=== PATIENT | female | born 1945 | race African-American/Black ===

== ENCOUNTER → 2023-05-26 | Outpatient (CLI) | payer OTHER ==
[~2023-05-26] VITALS: Ht 154.9 cm; Wt 78.5 kg
[2023-05-26] MEDS: ADENOSINE 66 MG in GIVE UN-DILUTED 0 ML IV STA (08:53)
== END | disposition home or self-care (01) ==
LOC: XYW 07:16
PROVIDERS: ATTEND Internal Medicine
DX: Z01.810 Encounter for preprocedural cardiovascular examination (principal); I10 Essential (primary) hypertension; M10.9 Gout, unspecified; E03.9 Hypothyroidism, unspecified; M16.11 Unilateral primary osteoarthritis, right hip
CPT/HCPCS: 78452; 93017; A9500; J0153

== ENCOUNTER → 2023-05-29 | Outpatient (CLI) | payer MEDICARE, OTHER | END | disposition home or self-care (01) | LOC: XYW 12:14 | PROVIDERS: ATTEND Student in an Organized Health Care Education/Training Program | DX: Z01.810 Encounter for preprocedural cardiovascular examination (principal); I10 Essential (primary) hypertension | CPT/HCPCS: 93306 ==

== ENCOUNTER → 2023-06-19 | Outpatient (CLI) | payer OTHER ==
[2023-06-19 11:41] LABS: Chloride 107 mmol/L (98-107); Potassium 4.1 mmol/L (3.5-5.1); Sodium 140 mmol/L (136-145)
[2023-06-19 11:42] LABS: Anion Gap 5 (5-15); Calcium 10.2 mg/dL (8.7-10.4); Carbon Dioxide 28 mmol/L (20-30)
[2023-06-19 11:46] LABS: Uric Acid 4.1 mg/dL (3.1-7.8)
[2023-06-19 11:47] LABS: BUN/Creatinine Ratio 9.8 (10.0-20.0); Blood Urea Nitrogen 9 mg/dL (9-23); Glucose 95 mg/dL (74-106)
== END | disposition home or self-care (01) ==
LOC: LAB 10:45
PROVIDERS: ATTEND Family Medicine
DX: I10 Essential (primary) hypertension (principal); E03.9 Hypothyroidism, unspecified; R73.03 Prediabetes; M1A.9XX0 Chronic gout, unspecified, without tophus (tophi)
CPT/HCPCS: 36415; 80048; 83036; 84439; 84443; 84550

== ENCOUNTER 2023-08-19 05:58 | Inpatient (IN) | payer OTHER ==
[2023-08-17 13:03] LABS: Urine Bacteria None Seen /hpf (None Seen)
[2023-08-17 13:10] LABS: Basophils # (auto) 0.1 10 ^3/uL (0-0.2); Basophils % (auto) 0.8 % (0.0-2.0); Eosinophils # (auto) 0.4 10 ^3/uL (0-0.8); Hematocrit 32.6 % (36.0-46.0); Hemoglobin 10.8 g/dL (12.2-16.2); Lymphocytes % (auto) 41.5 % (10.0-50.0); Mean Corpuscular Hemoglobin 29.6 pg (28.0-32.0); Mean Corpuscular Volume 89.7 fL (80.0-100.0); Monocytes # (auto) 0.6 10 ^3/uL (0-1.3); Monocytes % (auto) 8.6 % (0.0-12.0); Neutrophils # (auto) 3.2 10 ^3/uL (1.6-8.6); Neutrophils % (auto) 44.1 % (37.0-80.0); Nucleated Red Blood Cells % 0.1 %; Red Blood Cells 3.64 10^6/uL (4.0-5.20); Red Cell Distribution Width 14.1 % (11.8-14.3); White Blood Cell 7.3 10^3/uL (4.4-10.8)
[2023-08-17 13:25] LABS: INR 1.03 (0.9-1.15); Partial Thromboplastin Time 29.8 SEC (24.5-34.5); Prothrombin Time 10.9 sec (9.3-11.8)
[2023-08-17 13:36] LABS: Urine Blood Negative /uL (Negative); Urine Clarity Clear (Clear); Urine Color Light-Yellow (Yellow); Urine Protein, UAD Negative (Negative); Urine Specific Gravity 1.016 (1.001-1.035); Urine Urobilinogen Normal (Negative); Urine WBC 1 /hpf (0 - 5)
[2023-08-17 13:58] LABS: Albumin 4.4 g/dL (3.2-4.8); Alkaline Phosphatase 67 U/L (46-116); Anion Gap 4 (5-15); Aspartate Aminotransferase 19 U/L (13-40); BUN/Creatinine Ratio 14.4 (10.0-20.0); Blood Urea Nitrogen 13 mg/dL (9-23); Calcium 10.3 mg/dL (8.5-10.1); Carbon Dioxide 29 mmol/L (20-30); Chloride 108 mmol/L (98-107); Glucose 86 mg/dL (74-106); Potassium 4.6 mmol/L (3.5-5.1); Sodium 141 mmol/L (136-145)
[2023-08-17 13:59] LABS: Bilirubin, Total 0.5 mg/dL (0.2-1.0); Total Protein 7.3 g/dL (5.7-8.2)
[2023-08-17 14:06] LABS: Alanine Aminotransferase < 9 U/L (7-40)
[~2023-08-19] VITALS: Ht 157.5 cm; Wt 85.9 kg
[~2023-08-19 05:58] MED LIST: ACE3T PO; ALL100T PO; LEVO88TA4 PO; LISI2.5T47 PO; METO-289 PO; MIRA25TA OR
[2023-08-19] MEDS: TRANEXAMIC ACID 20 ML ONE (06:40)
[2023-08-19] MEDS: BUPIVACAINE 0.25% INJ 50ML VIAL ONE (06:40)
[2023-08-19] MEDS ORDERED: KETOROLAC TROMETH 30 MG/ML 1ML VIAL ONE (06:52)
[2023-08-19] MEDS ORDERED: MORPHINE SULF PF 5 MG/10 ML VIAL ONE (06:52)
[2023-08-19] MEDS: ROPIVACAINE 0.5% (5MG/ML) 20ML AMPULE IJ ONE (06:59)
[2023-08-19] MEDS ORDERED: MIDAZOLAM HCL 2MG/2ML 2ml VIAL (1mg/ml) ONE (07:03)
[2023-08-19] MEDS ORDERED: fentaNYL CITRATE 100 MCG/2 ML VL ONE (07:03)
[2023-08-19] MEDS ORDERED: PROPOFOL 10 MG/ML 20 ML IV ONE (07:05)
[2023-08-19] MEDS ORDERED: PHENYLEPHRINE HCL 10 MG/ML VL ONE (07:09)
[2023-08-19] MEDS: VANCOMYCIN HCL 1000 MG VL ONE (08:15)
[2023-08-19] MEDS ORDERED: LIDOCAINE 1% INJ PF 5ML AMP ONE (08:17)
[2023-08-19] MEDS ORDERED: ePHEDrine SULFATE 50 MG/ML AMP ONE (08:17)
[2023-08-19 09:14] VITALS: O2SAT 100
[2023-08-19] MEDS: LACTATED RINGER'S 1,000 ML IV SCH (09:14)
[2023-08-19] MEDS ORDERED: BISACODYL 5 MG EC TAB PO PRN (09:30)
[2023-08-19] MEDS: ONDANSETRON HCL 4 MG/2 ML VIAL IV ONE (09:30)
[2023-08-19] MEDS ORDERED: HYDROmorphone HCL 2 MG/ML VL/or syr IV PRN (09:30)
[2023-08-19] MEDS ORDERED: ceFAZolin 1GM/50ML 50 ML IV SCH ×2 (09:30→12:30)
[2023-08-19] MEDS ORDERED: MEPERIDINE HCL (25 MG/ML) 1ML VIAL IV PRN (09:30)
[2023-08-19] MEDS ORDERED: NITROGLYCERIN 0.4 MG SL TAB SL PRN (09:30)
[2023-08-19] MEDS: DOCUSATE SOD 100 MG CAP PO SCH (10:00)
[2023-08-19] MEDS: ENOXAPARIN SOD 30 MG/0.3 ML SYRINGE SC SCH (10:00)
[2023-08-19] MEDS: ceFAZolin 1GM/50ML 50 ML IV SCH (14:11)
[2023-08-19 14:17] VITALS: BP 149/62; PULSE 75; RESP 16; TEMP 97.4; O2SAT 99
[2023-08-19] MEDS: HYDROcodone-ACET 5/325MG TAB PO PRN (14:44)
[2023-08-19] MEDS: LISINOPRIL 5 MG TAB PO ONE (14:44)
[2023-08-19 17:35] VITALS: BP 113/49; PULSE 75; RESP 16; TEMP 98.8; O2SAT 100
[2023-08-19] MEDS: MORPHINE SULFATE INJ 2 MG/ml SYRG IV PRN (18:46)
[2023-08-19 19:36] VITALS: PULSE 82
[2023-08-19 21:00] VITALS: BP 139/60; PULSE 79; RESP 17; TEMP 98.9; O2SAT 97
[2023-08-20] VITALS (8 sets, daily range): BP systolic 125–150; BP diastolic 54–65; PULSE 76–84; RESP 14–20; TEMP 97.2–99.5; O2SAT 96–98
[2023-08-20] MEDS: LEVOTHYROXINE SODIUM 88 MCG TAB PO SCH (05:11)
[2023-08-20 07:00] LABS: Basophils # (auto) 0 10 ^3/uL (0-0.2); Basophils % (auto) 0.1 % (0.0-2.0); Eosinophils # (auto) 0 10 ^3/uL (0-0.8); Hematocrit 25.5 % (36.0-46.0); Hemoglobin 8.5 g/dL (12.2-16.2); Lymphocytes # (auto) 1.6 10 ^3/uL (0.4-5.4); Mean Corpuscular Hemoglobin 29.7 pg (28.0-32.0); Mean Corpuscular Hgb Conc. 33.2 g/dL (32.0-36.0); Mean Corpuscular Volume 89.4 fL (80.0-100.0); Monocytes # (auto) 1.1 10 ^3/uL (0-1.3); Monocytes % (auto) 11.6 % (0.0-12.0); Neutrophils # (auto) 6.6 10 ^3/uL (1.6-8.6); Neutrophils % (auto) 71.3 % (37.0-80.0); Nucleated Red Blood Cells % 0.2 %; Red Blood Cells 2.85 10^6/uL (4.0-5.20); Red Cell Distribution Width 14.1 % (11.8-14.3); White Blood Cell 9.2 10^3/uL (4.4-10.8)
[2023-08-20 07:09] LABS: Alanine Aminotransferase 116 U/L (7-40); Albumin 3.4 g/dL (3.2-4.8); Alkaline Phosphatase 69 U/L (46-116); Anion Gap 6 (5-15); Aspartate Aminotransferase 420 U/L (13-40); BUN/Creatinine Ratio 16.3 (10.0-20.0); Bilirubin, Total 1.6 mg/dL (0.2-1.0); Blood Urea Nitrogen 14 mg/dL (9-23); Calcium 9.1 mg/dL (8.5-10.1); Carbon Dioxide 26 mmol/L (20-30); Chloride 107 mmol/L (98-107); Glucose 137 mg/dL (74-106); Potassium 4.2 mmol/L (3.5-5.1); Sodium 139 mmol/L (136-145); Total Protein 5.5 g/dL (5.7-8.2)
[2023-08-20] MEDS: LISINOPRIL 5 MG TAB PO SCH (08:28)
[2023-08-20] MEDS: ALLOPURINOL 100 MG TAB PO SCH (08:28)
[2023-08-20] MEDS: ONDANSETRON HCL 4 MG/2 ML VIAL IV PRN (10:27)
[2023-08-20] MEDS: LACTATED RINGER'S 1,000 ML IV SCH (10:27)
[2023-08-21] VITALS (7 sets, daily range): BP systolic 122–142; BP diastolic 50–72; PULSE 79–98; RESP 16–20; TEMP 98.1–99.3; O2SAT 93–97
[2023-08-21] MEDS: LEVOTHYROXINE SODIUM 88 MCG TAB PO SCH (05:36)
[2023-08-21 07:00] LABS: Basophils # (auto) 0 10 ^3/uL (0-0.2); Eosinophils # (auto) 0 10 ^3/uL (0-0.8); Hemoglobin 8.4 g/dL (12.2-16.2); Red Cell Distribution Width 14.2 % (11.8-14.3)
[2023-08-21 07:03] LABS: Basophils % (auto) 0.3 % (0.0-2.0); Eosinophils % (auto) 0.3 % (0.0-7.0); Hematocrit 25.3 % (36.0-46.0); Lymphocytes # (auto) 1.4 10 ^3/uL (0.4-5.4); Lymphocytes % (auto) 13.6 % (10.0-50.0); Mean Corpuscular Hemoglobin 29.5 pg (28.0-32.0); Mean Corpuscular Hgb Conc. 33.1 g/dL (32.0-36.0); Mean Corpuscular Volume 89.2 fL (80.0-100.0); Monocytes # (auto) 1.5 10 ^3/uL (0-1.3); Monocytes % (auto) 14.4 % (0.0-12.0); Neutrophils # (auto) 7.3 10 ^3/uL (1.6-8.6); Neutrophils % (auto) 71.4 % (37.0-80.0); Red Blood Cells 2.84 10^6/uL (4.0-5.20); White Blood Cell 10.2 10^3/uL (4.4-10.8)
[2023-08-21 07:19] LABS: Alanine Aminotransferase 166 U/L (7-40); Albumin 3.2 g/dL (3.2-4.8); Alkaline Phosphatase 124 U/L (46-116); Anion Gap 4 (5-15); Aspartate Aminotransferase 352 U/L (13-40); BUN/Creatinine Ratio 10.5 (10.0-20.0); Blood Urea Nitrogen 8 mg/dL (9-23); Carbon Dioxide 28 mmol/L (20-30); Chloride 107 mmol/L (98-107); Glucose 105 mg/dL (74-106); Potassium 4.2 mmol/L (3.5-5.1); Sodium 139 mmol/L (136-145)
[2023-08-21 07:20] LABS: Bilirubin, Total 2.5 mg/dL (0.2-1.0); Total Protein 5.4 g/dL (5.7-8.2)
[2023-08-21] MEDS: LISINOPRIL 5 MG TAB PO ONE (10:38)
[2023-08-21] MEDS ORDERED: IRON SUCROSE COMPLEX 100 ML IV SCH (12:00)
[2023-08-21] MEDS: traMADol HCL 50 MG TAB PO PRN (13:04)
[2023-08-21] MEDS: SODIUM FERR GLUC 62.5MG/5ML 125 MG in SODIUM CHL 0.9% 100 ML IV SCH (13:04)
[2023-08-22] VITALS (9 sets, daily range): BP systolic 106–144; BP diastolic 50–70; PULSE 81–108; RESP 18–20; TEMP 97.4–99.3; O2SAT 95–97
[2023-08-22 07:25] LABS: Basophils # (auto) 0 10 ^3/uL (0-0.2); Eosinophils # (auto) 0.1 10 ^3/uL (0-0.8); Hemoglobin 7.1 g/dL (12.2-16.2); Monocytes # (auto) 1.3 10 ^3/uL (0-1.3); Neutrophils # (auto) 5.4 10 ^3/uL (1.6-8.6)
[2023-08-22 07:28] LABS: Basophils % (auto) 0.4 % (0.0-2.0); Eosinophils % (auto) 1.2 % (0.0-7.0); Hematocrit 21.3 % (36.0-46.0); Lymphocytes # (auto) 2.1 10 ^3/uL (0.4-5.4); Lymphocytes % (auto) 23.1 % (10.0-50.0); Mean Corpuscular Hemoglobin 29.8 pg (28.0-32.0); Mean Corpuscular Hgb Conc. 33.5 g/dL (32.0-36.0); Mean Corpuscular Volume 88.8 fL (80.0-100.0); Neutrophils % (auto) 60.3 % (37.0-80.0); Nucleated Red Blood Cells % 0.1 %; Red Cell Distribution Width 13.8 % (11.8-14.3)
[2023-08-22 07:29] LABS: Alanine Aminotransferase 82 U/L (7-40); Albumin 2.8 g/dL (3.2-4.8); Alkaline Phosphatase 104 U/L (46-116); Anion Gap 2 (5-15); Aspartate Aminotransferase 113 U/L (13-40); BUN/Creatinine Ratio 8.6 (10.0-20.0); Bilirubin, Total 1.1 mg/dL (0.2-1.0); Blood Urea Nitrogen 5 mg/dL (9-23); Calcium 8.5 mg/dL (8.5-10.1); Carbon Dioxide 29 mmol/L (20-30); Chloride 107 mmol/L (98-107); Glucose 90 mg/dL (74-106); Potassium 3.6 mmol/L (3.5-5.1); Sodium 138 mmol/L (136-145); Total Protein 4.8 g/dL (5.7-8.2)
[2023-08-22] MEDS: LISINOPRIL 5 MG TAB PO SCH (09:51)
[2023-08-22] MEDS: ACETAMINOPHEN 500 MG TAB PO PRN (14:57)
[2023-08-23] VITALS (8 sets, daily range): BP systolic 130–146; BP diastolic 61–68; PULSE 86–106; RESP 17–20; TEMP 98–98.8; O2SAT 95–98
[2023-08-23 06:21] LABS: Basophils # (auto) 0 10 ^3/uL (0-0.2); Eosinophils # (auto) 0.4 10 ^3/uL (0-0.8); Eosinophils % (auto) 3.6 % (0.0-7.0); Hemoglobin 8.3 g/dL (12.2-16.2); Monocytes # (auto) 1.3 10 ^3/uL (0-1.3); Neutrophils # (auto) 6.1 10 ^3/uL (1.6-8.6)
[2023-08-23 06:24] LABS: Basophils % (auto) 0.2 % (0.0-2.0); Hematocrit 25.1 % (36.0-46.0); Lymphocytes % (auto) 20.9 % (10.0-50.0); Mean Corpuscular Hemoglobin 29.4 pg (28.0-32.0); Mean Corpuscular Volume 89.1 fL (80.0-100.0); Monocytes % (auto) 13.3 % (0.0-12.0); Nucleated Red Blood Cells % 0.2 %; Red Blood Cells 2.81 10^6/uL (4.0-5.20); Red Cell Distribution Width 15.6 % (11.8-14.3); White Blood Cell 9.8 10^3/uL (4.4-10.8)
[2023-08-23 06:36] LABS: Anion Gap 2 (5-15); Carbon Dioxide 28 mmol/L (20-30); Chloride 107 mmol/L (98-107); Potassium 3.5 mmol/L (3.5-5.1); Sodium 137 mmol/L (136-145)
[2023-08-23 06:37] LABS: Calcium 8.6 mg/dL (8.7-10.4)
[2023-08-23 06:42] LABS: BUN/Creatinine Ratio 8.5 (10.0-20.0); Blood Urea Nitrogen 5 mg/dL (9-23); Glucose 94 mg/dL (74-106)
[2023-08-23] MEDS ORDERED: APIX5TAB PO (09:18)
[2023-08-23] MEDS ORDERED: OXYC-962 PO (09:18)
[2023-08-23] MEDS: diphenhdrAMINE HCL 25 MG CAP PO ONE (13:00)
[2023-08-24] VITALS (8 sets, daily range): BP systolic 129–151; BP diastolic 56–68; PULSE 51–94; RESP 16–18; TEMP 98–98.9; O2SAT 94–98
[2023-08-25] VITALS (8 sets, daily range): BP systolic 130–168; BP diastolic 36–77; PULSE 87–99; RESP 17–18; TEMP 97.4–98.9; O2SAT 96–100
[2023-08-25 06:42] LABS: Basophils # (auto) 0 10 ^3/uL (0-0.2); Basophils % (auto) 0.4 % (0.0-2.0); Eosinophils # (auto) 0.5 10 ^3/uL (0-0.8); Eosinophils % (auto) 4.7 % (0.0-7.0); Hemoglobin 7.8 g/dL (12.2-16.2); Monocytes # (auto) 1.4 10 ^3/uL (0-1.3); Nucleated Red Blood Cells % 0.1 %
[2023-08-25 06:45] LABS: Lymphocytes # (auto) 2.4 10 ^3/uL (0.4-5.4); Lymphocytes % (auto) 22.8 % (10.0-50.0); Mean Corpuscular Hemoglobin 28.9 pg (28.0-32.0); Mean Corpuscular Hgb Conc. 32.5 g/dL (32.0-36.0); Mean Corpuscular Volume 88.9 fL (80.0-100.0); Monocytes % (auto) 13.4 % (0.0-12.0); Neutrophils # (auto) 6.2 10 ^3/uL (1.6-8.6); Neutrophils % (auto) 58.7 % (37.0-80.0); Red Cell Distribution Width 15.2 % (11.8-14.3); White Blood Cell 10.5 10^3/uL (4.4-10.8)
[2023-08-25 06:50] LABS: Anion Gap 6 (5-15); Carbon Dioxide 28 mmol/L (20-30); Chloride 106 mmol/L (98-107); Potassium 4.2 mmol/L (3.5-5.1); Sodium 140 mmol/L (136-145)
[2023-08-25 06:51] LABS: Calcium 8.8 mg/dL (8.5-10.1)
[2023-08-25 06:56] LABS: BUN/Creatinine Ratio 14.3 (10.0-20.0); Blood Urea Nitrogen 9 mg/dL (9-23); Glucose 92 mg/dL (74-106)
[2023-08-25] MEDS: hydrALAZINE HCL 20 MG/ML VL IV PRN (13:19)
[2023-08-26] VITALS (7 sets, daily range): BP systolic 123–168; BP diastolic 58–74; PULSE 84–96; RESP 17–20; TEMP 97.8–98.8; O2SAT 95–98
[2023-08-26] MEDS: LACTULOSE 20Gm/30ML SOLN PO ONE (12:45)
[2023-08-26] MEDS: cloNIDine HCL 0.1 MG TAB PO ONE (18:55)
[2023-08-27 01:00] VITALS: BP 134/64; PULSE 87; RESP 20; TEMP 98.5; O2SAT 96
[2023-08-27 05:00] VITALS: BP 156/68; PULSE 82; RESP 20; TEMP 98.6; O2SAT 93
[2023-08-27] MEDS: diphenhdrAMINE HCL 50 MG/1 ML VL IV PRN (06:20)
[2023-08-27 07:20] LABS: Basophils # (auto) 0 10 ^3/uL (0-0.2); Basophils % (auto) 0.4 % (0.0-2.0); Eosinophils # (auto) 0.5 10 ^3/uL (0-0.8); Hematocrit 27.3 % (36.0-46.0); Hemoglobin 8.9 g/dL (12.2-16.2); Lymphocytes # (auto) 2.5 10 ^3/uL (0.4-5.4); Lymphocytes % (auto) 20.7 % (10.0-50.0); Mean Corpuscular Hemoglobin 29.5 pg (28.0-32.0); Mean Corpuscular Hgb Conc. 32.8 g/dL (32.0-36.0); Mean Corpuscular Volume 90.1 fL (80.0-100.0); Monocytes # (auto) 1.5 10 ^3/uL (0-1.3); Monocytes % (auto) 12.8 % (0.0-12.0); Neutrophils # (auto) 7.4 10 ^3/uL (1.6-8.6); Neutrophils % (auto) 62.1 % (37.0-80.0); Nucleated Red Blood Cells % 0.1 %; Red Blood Cells 3.03 10^6/uL (4.0-5.20); Red Cell Distribution Width 15.1 % (11.8-14.3); White Blood Cell 11.9 10^3/uL (4.4-10.8)
[2023-08-27 07:37] LABS: Alanine Aminotransferase 28 U/L (7-40); Albumin 3.4 g/dL (3.2-4.8); Alkaline Phosphatase 91 U/L (46-116); Anion Gap 4 (5-15); Aspartate Aminotransferase 37 U/L (13-40); BUN/Creatinine Ratio 9.2 (10.0-20.0); Blood Urea Nitrogen 6 mg/dL (9-23); Calcium 9.3 mg/dL (8.5-10.1); Carbon Dioxide 29 mmol/L (20-30); Chloride 104 mmol/L (98-107); Glucose 79 mg/dL (74-106); Potassium 3.6 mmol/L (3.5-5.1); Sodium 137 mmol/L (136-145)
[2023-08-27 07:38] LABS: Bilirubin, Total 0.8 mg/dL (0.2-1.0)
[2023-08-27 08:29] VITALS: BP 130/60; PULSE 83; RESP 18; TEMP 98.2; O2SAT 94
[2023-08-27 11:43] VITALS: BP 134/63; PULSE 102; RESP 16; TEMP 98.1; O2SAT 97
[2023-08-27 16:34] VITALS: BP 131/62; PULSE 91; RESP 16; TEMP 98.1; O2SAT 97
== END 2023-08-27 19:51 | DRG 470 ==
LOC: SUR 05:58 → TELE 09:26 → TELE-CENTR 13:56 → CENTRAL 08-25 13:27
PROVIDERS: ADMIT Orthopaedic Surgery; ATTEND Internal Medicine
PROC: 0SR90JZ Replacement of Right Hip Joint with Synthetic Substitute, Open Approach (ICD-10-PCS; principal; 2023-08-19 07:21)
PROC: 30233N1 Transfusion of Nonautologous Red Blood Cells into Peripheral Vein, Percutaneous Approach (ICD-10-PCS; 2023-08-22)
DX: M16.11 Unilateral primary osteoarthritis, right hip (principal); E03.9 Hypothyroidism, unspecified; I10 Essential (primary) hypertension; M10.9 Gout, unspecified; E66.9 Obesity, unspecified; D64.9 Anemia, unspecified; R74.01 Elevation of levels of liver transaminase levels; K80.20 Calculus of gallbladder without cholecystitis without obstruction; Z88.0 Allergy status to penicillin; Z82.49 Family history of ischemic heart disease and other diseases of the circulatory system; Z68.34 Body mass index [BMI] 34.0-34.9, adult; Z79.899 Other long term (current) drug therapy
CPT/HCPCS: 36415; 72170; 76705; 80048; 80053; 81001; 84443; 85025; 85610; 85730; 86850; 86900; 86901; 86920; 93005; 97110; 97116; 97163; 97530; G0378; J1885; J2250; J2405; J2704; J3490

== ENCOUNTER 2023-09-10 11:54 | Inpatient (IN) | payer OTHER ==
[~2023-09-10] VITALS: Ht 154.9 cm; Wt 75.9 kg
[~2023-09-10 11:54] MED LIST changes: +APIX5TAB PO; +OXYC-962 PO
[2023-09-10 12:07] VITALS: BP 143/70; PULSE 73; RESP 18; TEMP 97.7; O2SAT 96
[2023-09-10 12:43] VITALS: BP 143/70; PULSE 73; RESP 18; TEMP 97.7; O2SAT 96
[2023-09-10] MEDS ORDERED: MORPHINE SULFATE INJ 2 MG/ml SYRG IV PRN (14:00)
[2023-09-10] MEDS ORDERED: ACETAMINOPHEN 325 MG TAB PO PRN (14:00)
[2023-09-10] MEDS ORDERED: LISI-275 PO (14:09)
[2023-09-10 15:52] LABS: Hemoglobin 10.8 g/dL (12.2-16.2); Monocytes # (auto) 0.6 10 ^3/uL (0-1.3); Red Cell Distribution Width 15.4 % (11.8-14.3)
[2023-09-10 15:53] LABS: Basophils # (auto) 0 10 ^3/uL (0-0.2); Basophils % (auto) 0.6 % (0.0-2.0); Eosinophils # (auto) 0.2 10 ^3/uL (0-0.8); Eosinophils % (auto) 3.5 % (0.0-7.0); Hematocrit 33.3 % (36.0-46.0); Mean Corpuscular Hgb Conc. 32.3 g/dL (32.0-36.0); Mean Corpuscular Volume 89.8 fL (80.0-100.0); Monocytes % (auto) 8.3 % (0.0-12.0); Neutrophils # (auto) 4.4 10 ^3/uL (1.6-8.6); Neutrophils % (auto) 60.6 % (37.0-80.0); Nucleated Red Blood Cells % 0.1 %; Red Blood Cells 3.71 10^6/uL (4.0-5.20); White Blood Cell 7.2 10^3/uL (4.4-10.8)
[2023-09-10 16:12] LABS: Alanine Aminotransferase < 9 U/L (7-40); Albumin 4.2 g/dL (3.2-4.8); Alkaline Phosphatase 107 U/L (46-116); Anion Gap 7 (5-15); Aspartate Aminotransferase 26 U/L (13-40); BUN/Creatinine Ratio 11.8 (10.0-20.0); Bilirubin, Total 0.5 mg/dL (0.2-1.0); Blood Urea Nitrogen 10 mg/dL (9-23); Carbon Dioxide 24 mmol/L (20-30); Chloride 105 mmol/L (98-107); Glucose 89 mg/dL (74-106); INR 0.99 (0.9-1.15); Partial Thromboplastin Time 31.3 SEC (24.5-34.5); Potassium 4.2 mmol/L (3.5-5.1); Prothrombin Time 10.5 sec (9.3-11.8); Sodium 136 mmol/L (136-145); Total Protein 7.6 g/dL (5.7-8.2)
[2023-09-10 17:17] VITALS: BP 141/72; PULSE 82; RESP 19; TEMP 97.8; O2SAT 95
[2023-09-10] MEDS: HYDROcodone-ACET 5/325MG TAB PO PRN (19:45)
[2023-09-10 20:00] VITALS: PULSE 82; RESP 16
[2023-09-10 21:00] VITALS: BP 118/59; PULSE 77; RESP 16; TEMP 98.5; O2SAT 94
[2023-09-11] VITALS (7 sets, daily range): BP systolic 101–154; BP diastolic 52–84; PULSE 59–78; RESP 14–18; TEMP 97.4–98.1; O2SAT 96–98
[2023-09-11] MEDS: LEVOTHYROXINE SODIUM 88 MCG TAB PO SCH (06:05)
[2023-09-11] MEDS: ceFAZolin 2 GM/D5W50ml 50 ML IV ONE (06:56)
[2023-09-11] MEDS: VANCOMYCIN HCL 1000 MG VL ONE (07:16)
[2023-09-11] MEDS ORDERED: fentaNYL CITRATE 100 MCG/2 ML VL ONE (07:19)
[2023-09-11] MEDS ORDERED: PROPOFOL 10 MG/ML 20 ML IV ONE (07:20)
[2023-09-11] MEDS: BUPIVACAINE HCL 50 ML ONE (07:20)
[2023-09-11] MEDS ORDERED: ePHEDrine SULFATE 50 MG/ML AMP ONE (07:38)
[2023-09-11] MEDS ORDERED: PHENYLEPHRINE HCL 10 MG/ML VL ONE (07:38)
[2023-09-11] MEDS ORDERED: MEPERIDINE HCL (25 MG/ML) 1ML VIAL ONE ×2 (07:45→08:05)
[2023-09-11] MEDS: ROPIVACAINE 0.5% (5MG/ML) 20ML AMPULE IJ ONE (08:29)
[2023-09-11] MEDS ORDERED: BISACODYL 5 MG EC TAB PO PRN (08:30)
[2023-09-11] MEDS ORDERED: ONDANSETRON HCL 4 MG/2 ML VIAL IV PRN (08:30)
[2023-09-11] MEDS: ACETAMINOPHEN IV 1000 MG/100ML (10MG/ML) IV PRN (08:51)
[2023-09-11] MEDS: ACETAMINOPHEN IV 100 ML IV ONE (08:58)
[2023-09-11] MEDS: ONDANSETRON HCL 4 MG/2 ML VIAL IV ONE (09:00)
[2023-09-11] MEDS ORDERED: HYDROmorphone HCL 2 MG/ML VL/or syr IV PRN (09:00)
[2023-09-11] MEDS ORDERED: MEPERIDINE HCL (25 MG/ML) 1ML VIAL IV PRN (09:00)
[2023-09-11] MEDS: LISINOPRIL 5 MG TAB PO SCH (10:02)
[2023-09-11] MEDS: DOCUSATE SOD 100 MG CAP PO SCH (10:02)
[2023-09-11] MEDS: LACTATED RINGER'S 1,000 ML IV SCH (10:17)
[2023-09-11] MEDS: ceFAZolin 1GM/50ML 50 ML IV SCH (10:21)
[2023-09-11] MEDS: ALLOPURINOL 100 MG TAB PO SCH (10:22)
[2023-09-11] MEDS: METOPROLOL SUCCINATE XL 50 MG TAB PO SCH (10:22)
[2023-09-11 11:57] LABS: Chloride 107 mmol/L (98-107); Sodium 135 mmol/L (136-145)
[2023-09-11 11:58] LABS: Anion Gap 3 (5-15); Calcium 9.7 mg/dL (8.5-10.1); Carbon Dioxide 25 mmol/L (20-30)
[2023-09-11] MEDS ORDERED: CLINDAMYCIN 600MG IV 50 ML IV SCH (12:00)
[2023-09-11 12:03] LABS: Blood Urea Nitrogen 10 mg/dL (9-23); Glucose 92 mg/dL (74-106)
[2023-09-11 12:45] LABS: Potassium 5.7 mmol/L (3.5-5.1)
[2023-09-11 14:27] LABS: Basophils # (auto) 0 10 ^3/uL (0-0.2); Basophils % (auto) 0.3 % (0.0-2.0); Eosinophils # (auto) 0.2 10 ^3/uL (0-0.8); Eosinophils % (auto) 2.2 % (0.0-7.0); Hematocrit 29.5 % (36.0-46.0); Hemoglobin 9.8 g/dL (12.2-16.2); Lymphocytes # (auto) 1.9 10 ^3/uL (0.4-5.4); Lymphocytes % (auto) 23.8 % (10.0-50.0); Mean Corpuscular Hemoglobin 29.6 pg (28.0-32.0); Mean Corpuscular Hgb Conc. 33.1 g/dL (32.0-36.0); Mean Corpuscular Volume 89.3 fL (80.0-100.0); Monocytes # (auto) 0.5 10 ^3/uL (0-1.3); Monocytes % (auto) 6.4 % (0.0-12.0); Neutrophils # (auto) 5.4 10 ^3/uL (1.6-8.6); Neutrophils % (auto) 67.3 % (37.0-80.0); Red Cell Distribution Width 14.9 % (11.8-14.3)
[2023-09-11 14:30] LABS: Chloride 106 mmol/L (98-107); Potassium 4.4 mmol/L (3.5-5.1); Sodium 137 mmol/L (136-145)
[2023-09-11 14:31] LABS: Anion Gap 4 (5-15); Calcium 9.5 mg/dL (8.7-10.4); Carbon Dioxide 27 mmol/L (20-30)
[2023-09-11 14:36] LABS: Blood Urea Nitrogen 15 mg/dL (9-23); Glucose 123 mg/dL (74-106)
[2023-09-11] MEDS: SODIUM ZIRCONIUM CYCL 10 GM PAK PO ONE (14:54)
[2023-09-12] VITALS (7 sets, daily range): BP systolic 101–142; BP diastolic 41–62; PULSE 67–74; RESP 16–18; TEMP 97.8–98.5; O2SAT 96–100
[2023-09-12 02:01] LABS: Urine Bacteria None Seen /hpf (None Seen)
[2023-09-12 02:06] LABS: Urine Blood Negative /uL (Negative); Urine Clarity Clear (Clear); Urine Color Light-Yellow (Yellow); Urine Protein, UAD Negative (Negative); Urine Specific Gravity 1.012 (1.001-1.035); Urine Urobilinogen Normal (Negative); Urine WBC 2 /hpf (0 - 5)
[2023-09-12 05:58] LABS: Basophils # (auto) 0 10 ^3/uL (0-0.2); Basophils % (auto) 0.3 % (0.0-2.0); Eosinophils # (auto) 0.3 10 ^3/uL (0-0.8); Eosinophils % (auto) 3.4 % (0.0-7.0); Hematocrit 27.6 % (36.0-46.0); Hemoglobin 9.1 g/dL (12.2-16.2); Lymphocytes # (auto) 2.1 10 ^3/uL (0.4-5.4); Lymphocytes % (auto) 24.8 % (10.0-50.0); Mean Corpuscular Hemoglobin 29.9 pg (28.0-32.0); Mean Corpuscular Hgb Conc. 32.8 g/dL (32.0-36.0); Monocytes % (auto) 12.1 % (0.0-12.0); Neutrophils % (auto) 59.4 % (37.0-80.0); Red Blood Cells 3.03 10^6/uL (4.0-5.20); Red Cell Distribution Width 15.2 % (11.8-14.3); White Blood Cell 8.5 10^3/uL (4.4-10.8)
[2023-09-12 06:31] LABS: Albumin 3.2 g/dL (3.2-4.8); Alkaline Phosphatase 84 U/L (46-116); Anion Gap 4 (5-15); Aspartate Aminotransferase 14 U/L (13-40); BUN/Creatinine Ratio 14.5 (10.0-20.0); Blood Urea Nitrogen 11 mg/dL (9-23); Calcium 9.1 mg/dL (8.5-10.1); Carbon Dioxide 24 mmol/L (20-30); Chloride 110 mmol/L (98-107); Glucose 96 mg/dL (74-106); Magnesium 1.9 mg/dL (1.6-2.6); Potassium 4.7 mmol/L (3.5-5.1); Sodium 138 mmol/L (136-145)
[2023-09-12 06:32] LABS: Alanine Aminotransferase < 9 U/L (7-40); Bilirubin, Total 0.4 mg/dL (0.2-1.0); Total Protein 5.9 g/dL (5.7-8.2)
[2023-09-12] MEDS: SODIUM CHLORIDE 0.9% 1,000 ML IV SCH (11:35)
[2023-09-13 01:00] VITALS: BP 146/63; PULSE 73; RESP 18; TEMP 98.7; O2SAT 99
[2023-09-13 05:00] VITALS: BP 139/61; PULSE 69; RESP 17; TEMP 98.7; O2SAT 99
[2023-09-13 06:00] LABS: Basophils # (auto) 0 10 ^3/uL (0-0.2); Basophils % (auto) 0.5 % (0.0-2.0); Eosinophils # (auto) 0.4 10 ^3/uL (0-0.8); Hematocrit 29.3 % (36.0-46.0); Hemoglobin 9.7 g/dL (12.2-16.2); Lymphocytes # (auto) 2.8 10 ^3/uL (0.4-5.4); Lymphocytes % (auto) 36.3 % (10.0-50.0); Mean Corpuscular Hemoglobin 29.7 pg (28.0-32.0); Mean Corpuscular Hgb Conc. 33.2 g/dL (32.0-36.0); Mean Corpuscular Volume 89.5 fL (80.0-100.0); Monocytes # (auto) 0.9 10 ^3/uL (0-1.3); Monocytes % (auto) 12.2 % (0.0-12.0); Neutrophils # (auto) 3.6 10 ^3/uL (1.6-8.6); Nucleated Red Blood Cells % 0.1 %; Red Blood Cells 3.27 10^6/uL (4.0-5.20); Red Cell Distribution Width 14.9 % (11.8-14.3); White Blood Cell 7.8 10^3/uL (4.4-10.8)
[2023-09-13 06:19] LABS: Albumin 3.4 g/dL (3.2-4.8); Alkaline Phosphatase 81 U/L (46-116); Anion Gap 4 (5-15); Aspartate Aminotransferase 15 U/L (13-40); Blood Urea Nitrogen 9 mg/dL (9-23); Calcium 9.5 mg/dL (8.5-10.1); Carbon Dioxide 27 mmol/L (20-30); Chloride 110 mmol/L (98-107); Glucose 89 mg/dL (74-106); Potassium 4.4 mmol/L (3.5-5.1); Sodium 141 mmol/L (136-145)
[2023-09-13 06:20] LABS: Alanine Aminotransferase < 9 U/L (7-40)
[2023-09-13 06:21] LABS: Bilirubin, Total 0.5 mg/dL (0.2-1.0); Total Protein 6.2 g/dL (5.7-8.2)
[2023-09-13 08:00] VITALS: PULSE 64; RESP 17; O2SAT 99
[2023-09-13 08:07] VITALS: BP 137/67; PULSE 64; RESP 17; TEMP 98.5; O2SAT 99
[2023-09-13 21:00] VITALS: BP 133/61; PULSE 70; RESP 16; TEMP 98.2; O2SAT 97
[2023-09-14] VITALS (7 sets, daily range): BP systolic 124–154; BP diastolic 60–84; PULSE 64–98; RESP 16–18; TEMP 98.3–98.9; O2SAT 96–99
[2023-09-14 06:36] LABS: Basophils # (auto) 0 10 ^3/uL (0-0.2); Basophils % (auto) 0.6 % (0.0-2.0); Eosinophils # (auto) 0.4 10 ^3/uL (0-0.8); Eosinophils % (auto) 5.2 % (0.0-7.0); Hematocrit 29.5 % (36.0-46.0); Hemoglobin 9.6 g/dL (12.2-16.2); Lymphocytes # (auto) 2.9 10 ^3/uL (0.4-5.4); Lymphocytes % (auto) 37.5 % (10.0-50.0); Mean Corpuscular Hemoglobin 29.3 pg (28.0-32.0); Mean Corpuscular Hgb Conc. 32.6 g/dL (32.0-36.0); Monocytes # (auto) 0.8 10 ^3/uL (0-1.3); Monocytes % (auto) 10.8 % (0.0-12.0); Neutrophils # (auto) 3.5 10 ^3/uL (1.6-8.6); Neutrophils % (auto) 45.9 % (37.0-80.0); Red Blood Cells 3.28 10^6/uL (4.0-5.20); Red Cell Distribution Width 15.1 % (11.8-14.3); White Blood Cell 7.7 10^3/uL (4.4-10.8)
[2023-09-14 06:59] LABS: Alkaline Phosphatase 85 U/L (46-116); Anion Gap 5 (5-15); BUN/Creatinine Ratio 13.9 (10.0-20.0); Blood Urea Nitrogen 10 mg/dL (9-23); Calcium 9.5 mg/dL (8.5-10.1); Carbon Dioxide 26 mmol/L (20-30); Chloride 109 mmol/L (98-107); Glucose 89 mg/dL (74-106); Potassium 3.9 mmol/L (3.5-5.1); Sodium 140 mmol/L (136-145)
[2023-09-14 07:00] LABS: Albumin 3.5 g/dL (3.2-4.8); Aspartate Aminotransferase 18 U/L (13-40); Bilirubin, Total 0.4 mg/dL (0.2-1.0); Total Protein 6.3 g/dL (5.7-8.2)
[2023-09-14 07:01] LABS: Alanine Aminotransferase < 9 U/L (7-40)
[2023-09-14] MEDS: PANTOPRAZOLE 40 MG TAB PO ONE (11:00)
[2023-09-14] MEDS: IBUPROFEN 400 MG TAB PO PRN (13:03)
[2023-09-14] MEDS ORDERED: PIPERACILLIN-TAZOB 3.375GM 100 ML IV SCH (14:00)
[2023-09-14] MEDS: CEFEPIME 1GM/ 50ML 50 ML IV SCH (21:49)
[2023-09-14] MEDS ORDERED: CEFEPIME 1GM/ 50ML 50 ML IV SCH (22:00)
[2023-09-15] MEDS: ACETAMINOPHEN 325 MG TAB PO PRN (04:42)
[2023-09-15 05:00] VITALS: BP 148/69; PULSE 67; RESP 16; TEMP 98.2; O2SAT 99
[2023-09-15] MEDS: PANTOPRAZOLE 40 MG TAB PO SCH (05:47)
[2023-09-15 09:00] VITALS: BP 131/67; PULSE 82; RESP 17; TEMP 98.3; O2SAT 99
[2023-09-15 13:00] VITALS: BP 147/73; PULSE 78; RESP 19; TEMP 97.5; O2SAT 97
[2023-09-15 17:00] VITALS: BP 146/69; PULSE 69; RESP 20; TEMP 97.9; O2SAT 100
[2023-09-15 20:00] VITALS: PULSE 111
[2023-09-15 23:23] VITALS: BP 129/65; PULSE 72; RESP 16; TEMP 98.2; O2SAT 96
[2023-09-16 06:33] VITALS: BP 136/68; PULSE 64; RESP 16; TEMP 97.2; O2SAT 97
[2023-09-16 06:35] VITALS: BP 153/69; PULSE 67; RESP 16; TEMP 98.1; O2SAT 99
[2023-09-16 08:56] VITALS: BP 131/51; PULSE 72; RESP 18; TEMP 98.4; O2SAT 100
[2023-09-16] MEDS: LISINOPRIL 5 MG TAB PO SCH (09:36)
[2023-09-16 11:43] VITALS: BP 132/63; PULSE 63
[2023-09-16 13:00] VITALS: BP 130/63; PULSE 73; RESP 18; TEMP 98.7; O2SAT 99
[2023-09-16 17:00] VITALS: BP 92/66; PULSE 84; RESP 20; TEMP 98.7; O2SAT 98
[2023-09-17] MEDS ORDERED: LEVOTHYROXINE SODIUM 25 MCG TAB PO SCH (07:00)
== END 2023-09-16 18:40 | disposition home health service (06) | DRG 920 ==
LOC: TELE-CENTR 11:56 → UNDOADMIN 11:56 → TELE-CENTR 14:02 → CENTRAL 09-12 17:08
PROVIDERS: ADMIT Internal Medicine; ATTEND Internal Medicine
PROC: 0J9L0ZZ Drainage of Right Upper Leg Subcutaneous Tissue and Fascia, Open Approach (ICD-10-PCS; principal; 2023-09-11 07:25)
PROC: 05HC33Z Insertion of Infusion Device into Left Basilic Vein, Percutaneous Approach (ICD-10-PCS; 2023-09-14)
PROC: B54NZZA Ultrasonography of Left Upper Extremity Veins, Guidance (ICD-10-PCS; 2023-09-14)
DX: M96.840 Postprocedural hematoma of a musculoskeletal structure following a musculoskeletal system procedure (principal); N17.9 Acute kidney failure, unspecified; I10 Essential (primary) hypertension; M10.9 Gout, unspecified; E03.9 Hypothyroidism, unspecified; E66.9 Obesity, unspecified; E87.5 Hyperkalemia; D50.0 Iron deficiency anemia secondary to blood loss (chronic); D75.838 Other thrombocytosis; Z88.0 Allergy status to penicillin; Z96.641 Presence of right artificial hip joint; Z79.899 Other long term (current) drug therapy; Z68.31 Body mass index [BMI] 31.0-31.9, adult; Y84.8 Other medical procedures as the cause of abnormal reaction of the patient, or of later complication, without mention of misadventure at the time of the procedure; Y92.89 Other specified places as the place of occurrence of the external cause
CPT/HCPCS: 36415; 71045; 80048; 80053; 81001; 83735; 84443; 85025; 85610; 85730; 86850; 86900; 86901; 87040; 87070; 87075; 87077; 87081; 87186; 87205; 93005; 97110; 97116; 97163; 97530; A4565; G0378; J0131; J2704; J3490

== ENCOUNTER → 2024-01-21 | Outpatient (CLI) | payer OTHER ==
[~2024-01-21] MED LIST changes: +LISI-275 PO; -LISI2.5T47 PO
[2024-01-21 11:04] LABS: Basophils # (auto) 0.1 10 ^3/uL (0-0.2); Basophils % (auto) 0.9 % (0.0-2.0); Eosinophils # (auto) 0.2 10 ^3/uL (0-0.8); Eosinophils % (auto) 3.7 % (0.0-7.0); Hemoglobin 11.6 g/dL (12.2-16.2); Lymphocytes # (auto) 2.3 10 ^3/uL (0.4-5.4); Mean Corpuscular Hgb Conc. 33.1 g/dL (32.0-36.0); Mean Corpuscular Volume 87.6 fL (80.0-100.0); Monocytes # (auto) 0.5 10 ^3/uL (0-1.3); Monocytes % (auto) 8.4 % (0.0-12.0); Neutrophils # (auto) 2.8 10 ^3/uL (1.6-8.6); Platelet Count (auto) 230 10^3/uL (140-450); Red Blood Cells 3.99 10^6/uL (4.0-5.20); Urine Bacteria None Seen /hpf (None Seen); White Blood Cell 5.8 10^3/uL (4.4-10.8)
[2024-01-21 11:25] LABS: Urine Blood TRACE /uL (Negative); Urine Clarity Clear (Clear); Urine Color Light-Yellow (Yellow); Urine Protein, UAD Negative (Negative); Urine Specific Gravity 1.018 (1.001-1.035); Urine Urobilinogen Normal (Negative); Urine WBC <1 /hpf (0 - 5); Urine pH 5.5 (5.0-9.0)
[2024-01-21 11:32] LABS: Alanine Aminotransferase 19 U/L (7-40); Albumin 4.2 g/dL (3.2-4.8); Alkaline Phosphatase 78 U/L (46-116); Anion Gap 7 (5-15); Aspartate Aminotransferase 34 U/L (13-40); BUN/Creatinine Ratio 16.7 (10.0-20.0); Blood Urea Nitrogen 13 mg/dL (9-23); Calcium 9.9 mg/dL (8.7-10.4); Carbon Dioxide 29 mmol/L (20-31); Chloride 109 mmol/L (98-107); Glucose 86 mg/dL (74-106); LDL Cholesterol 78 mg/dL (< 100); Potassium 3.5 mmol/L (3.5-5.1); Sodium 145 mmol/L (136-145); Triglycerides 50 mg/dL (< 150)
[2024-01-21 11:33] LABS: % Iron Saturation 32.5 % (15-50); Bilirubin, Total 0.7 mg/dL (0.2-1.0); Cholesterol 143 mg/dL (< 200); HDL Cholesterol 56 mg/dL (40-59); Total Protein 7.1 g/dL (5.7-8.2)
[2024-01-21 11:38] LABS: Folate (Folic Acid) 10.6 ng/mL (>5.38)
== END | disposition home or self-care (01) ==
LOC: LAB 10:31
PROVIDERS: ATTEND Family Medicine
DX: Z00.00 Encounter for general adult medical examination without abnormal findings (principal)
CPT/HCPCS: 36415; 80053; 80061; 81001; 82306; 82607; 82746; 83036; 83540; 83550; 84403; 84443; 84550; 85025

== ENCOUNTER → 2024-04-13 | Outpatient (CLI) | payer OTHER | END | disposition home or self-care (01) | LOC: LAB 10:58 | PROVIDERS: ATTEND Family Medicine | DX: E03.9 Hypothyroidism, unspecified (principal) | CPT/HCPCS: 36415; 84443 ==

== ENCOUNTER → 2024-07-14 | Outpatient (CLI) | payer OTHER | END | disposition home or self-care (01) | LOC: LAB 10:30 | PROVIDERS: ATTEND Dermatology | DX: D48.5 Neoplasm of uncertain behavior of skin (principal) ==

== ENCOUNTER 2024-10-12 10:09 | Outpatient (CLI) | payer OTHER ==
[2024-10-12 10:45] LABS: Hematocrit 37.2 % (36.0-46.0); Hemoglobin 12.3 g/dL (12.2-16.2); Mean Corpuscular Hemoglobin 29.1 pg (28.0-32.0); Mean Corpuscular Volume 88.2 fL (80.0-100.0); Nucleated Red Blood Cells % 0.1 %
[2024-10-12 11:13] LABS: Iron 84.0 ug/dL (50-170)
[2024-10-12 11:16] LABS: Total Iron Binding Capacity 260.0 ug/dL (250-425)
[2024-10-12 11:18] LABS: Alanine Aminotransferase 22 U/L (7-40); Alkaline Phosphatase 65 U/L (46-116); Anion Gap 8 (5-15); BUN/Creatinine Ratio 13.6 (10.0-20.0); Blood Urea Nitrogen 14 mg/dL (9-23); Calcium 10.2 mg/dL (8.7-10.4); Carbon Dioxide 29 mmol/L (20-31); Chloride 106 mmol/L (98-107); Glucose 90 mg/dL (74-106); Magnesium 2.0 mg/dL (1.6-2.6); Potassium 4.1 mmol/L (3.5-5.1); Sodium 143 mmol/L (136-145); Total Protein 6.9 g/dL (5.7-8.2); Triglycerides 46 mg/dL (< 150)
[2024-10-12 11:19] LABS: Albumin 4.3 g/dL (3.2-4.8); Cholesterol 162 mg/dL (< 200); HDL Cholesterol 55 mg/dL (40-59)
[2024-10-12 11:20] LABS: Bilirubin, Total 0.6 mg/dL (0.2-1.0)
[2024-10-12 11:28] LABS: Uric Acid 4.5 mg/dL (3.1-7.8)
[2024-10-12 12:01] LABS: Follicle Stimulating Hormone 116.72 IU/L (SEE BELOW)
[2024-10-13 06:06] LABS: Immunoglobulin A 351.0 mg/dL (64-422); Immunoglobulin G, Serum 1180.0 mg/dL (586-1602); Immunoglobulin M 119.0 mg/dL (26-217)
== END 2024-10-12 17:00 | disposition home or self-care (01) ==
LOC: LAB 10:09
PROVIDERS: ATTEND Family Medicine
DX: I10 Essential (primary) hypertension (principal); E03.9 Hypothyroidism, unspecified; Z00.00 Encounter for general adult medical examination without abnormal findings; Z68.31 Body mass index [BMI] 31.0-31.9, adult
CPT/HCPCS: 36415; 80053; 80061; 82306; 82607; 82670; 82784; 83001; 83002; 83036; 83540; 83550; 83735; 84144; 84146; 84443; 84550; 85025; 86334